=== PATIENT | female | born 1945 | race Two or more races ===

== ENCOUNTER → 2024-03-13 | Outpatient (CLI) | payer MEDICARE, MEDICAID, SELFPAY ==
--- NOTE | 2024-03-13 14:45 | XR_ITS ---
EXAMINATION: Cervical spine, 5 views Technique: Cervical spine AP, AP odontoid, lateral, bilateral obliques, 5 views Exam date and time: March 13, 2024 1510 hours INDICATIONS: Neck pain 3 weeks radiating down the left arm FINDINGS: Cervical fusion C6-C7 with anatomic alignment No cervical fracture Mild disc narrowing C5-C6 Intact odontoid IMPRESSION: Early degenerative disc disease C5-C6
== END | disposition home or self-care (01) ==
LOC: CDIM 14:29
PROVIDERS: PCP Family Medicine; Referring Provider Family Medicine; Visit Provider Family Medicine
DX: M50.322 Other cervical disc degeneration at C5-C6 level (principal)
CPT/HCPCS: 72050

== ENCOUNTER → 2024-03-19 | Outpatient (CLI) | payer MEDICARE, MEDICAID, SELFPAY ==
--- NOTE | 2024-03-19 15:56 | XR_ITS ---
Examination: Shoulder,right, 3 views Technique: Shoulder AP internal rotation, AP external rotation, Y view shoulder, 3 views Exam date and time :March 19, 2024 1600 hours INDICATIONS: Right shoulder pain months FINDINGS: Moderate to advanced osteoarthritis glenohumeral joint Prominent calcific tendinitis No fracture or shoulder dislocation Prominent osteopenia IMPRESSION: Moderate to advanced osteoarthritis glenohumeral joint Prominent calcific tendinitis
== END | disposition home or self-care (01) ==
LOC: CDIM 15:30
PROVIDERS: PCP Family Medicine; Referring Provider Nurse Practitioner Family; Visit Provider Nurse Practitioner Family
DX: M19.011 Primary osteoarthritis, right shoulder (principal); M75.31 Calcific tendinitis of right shoulder
CPT/HCPCS: 73030

== ENCOUNTER → 2024-10-13 | Outpatient (CLI) | payer MEDICARE, MEDICAID, SELFPAY ==
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
== END | disposition home or self-care (01) ==
LOC: COPL 14:17 → CDIM 10-31 14:27
PROVIDERS: PCP Family Medicine; Referring Provider Family Medicine; Visit Provider Family Medicine
DX: S19.9XXA Unspecified injury of neck, initial encounter (principal); S29.9XXA Unspecified injury of thorax, initial encounter; V89.2XXA Person injured in unspecified motor-vehicle accident, traffic, initial encounter
CPT/HCPCS: 71120; 72050